=== PATIENT | female | born 1965 | race Two or more races ===

== ENCOUNTER → 2019-11-15 09:52 | Outpatient (CLI) | payer SELFPAY ==
--- NOTE | ~2019-11-15 | MMUS_ITS ---
EXAMINATION: MM diagnostic everardo LT w benji, US breast LT complete HISTORY: Follow-up left breast mass TECHNIQUE: Additional 3-D tomosynthesis images of the left breast were performed and synthetic 2-D im ages were generated. CAD analysis was submitted and interpreted. High resolution left breast ultrasou nd was performed. COMPARISON: 02/02/2019 BREAST PARENCHYMAL COMPOSITION: The breasts are heterogenously dense, which may obscure small masses. FINDINGS: MAMMOGRAPHIC FINDINGS: There are no new masses, calcifications or architectural distortion in the left breast. There are crissy ign calcifications. ULTRASOUND: Left breast ultrasound: At 2:00, 11 cm from the nipple, there is an oval circumscribed hypoechoic mas s measuring 1.2 x 0.4 x 1 cm. No internal vascularity or significant posterior shadowing. IMPRESSION: 1. No significant change to 1.2 cm circumscribed oval hypoechoic mass, most likely benign. 2. Recommend 6 month follow-up left breast ultrasound BI-RADS category 3, probably benign findings. Reviewed, dictated and finalized at location A. IMPRESSION: 1. No significant change to 1.2 cm circumscribed oval hypoechoic mass, most lik erica benign. 2. Recommend 6 month follow-up left breast ultrasound BI-RADS category 3, probably benign findings.
== END ==
PROVIDERS: Visit Provider Obstetrics & Gynecology
DX: R92.8 Other abnormal and inconclusive findings on diagnostic imaging of breast (principal)
CPT/HCPCS: 76641; 77061; 77065; G0279

== ENCOUNTER → 2020-06-25 10:22 | Outpatient (CLI) | payer BC, SELFPAY ==
--- NOTE | ~2020-06-25 | US_ITS ---
US breast LT limited INDICATION: Follow-up left breast mass TECHNIQUE: Dedicated left breast ultrasound COMPARISON: Comparison to multiple prior studies sequentially, with oldest reviewed study dated 02/10. FINDINGS: Stable benign-appearing cyst measuring 9 x 4 x 7 mm at 2:00, 11 cm from the nipple. There i s posterior acoustic enhancement without internal vascularity. IMPRESSION: 1: Stable benign-appearing left breast cyst without significant change compared with 02/23/2019. No e vidence for malignancy. Routine yearly screening mammogram and regular clinical breast examination are recommended. BI-RADS CATEGORY 2 - BENIGN FINDINGS Reviewed, dictated and finalized at location A. IMPRESSION: 1: Stable benign-appearing left breast cyst without significant change compared with 02/23/2019. No evidence for malignancy. Routine yearly screening mammogram and regular clinical breast examination are recommended. BI-RADS CATEGORY 2 - BENIGN FINDINGS
== END ==
PROVIDERS: Visit Provider Obstetrics & Gynecology
DX: R92.8 Other abnormal and inconclusive findings on diagnostic imaging of breast (principal)
CPT/HCPCS: 76642

== ENCOUNTER → 2020-07-22 15:28 | Outpatient (CLI) | payer BC, SELFPAY ==
--- NOTE | ~2020-07-22 | XR_ITS ---
XR shoulder LT min 2V DATE: 07/22/2020 15:56 INDICATION: Left shoulder pain TECHNIQUE: 4 views COMPARISON: None FINDINGS: No fracture or dislocation, periosteal reaction or bone destruction or abnormal soft tissue calcification. IMPRESSION: No fracture or dislocation Reviewed, dictated and finalized at location A. IMPRESSION: No fracture or dislocation
--- NOTE | ~2020-07-22 | XR_ITS ---
XR cervical spine 4-5V DATE: 07/22/2020 15:57 INDICATION: Neck pain TECHNIQUE: AP, open-mouth, odontoid, lateral, swimmer views. COMPARISON: None FINDINGS: There is straightening and mild reversal of the cervical spine. C1 and C2 are normally aligned and the odontoid process is intact. No fracture or dislocation or lock ed facet or prevertebral soft tissue swelling. There is mild anterolisthesis at C4-5. There is moderate degenerative disc disease and mild retrolisthesis at C5-6. There is moderate degenerative disc disease at C6-7. Degenerative spurring at the uncovertebral joints at C5-6. IMPRESSION: Straightening/reversal Mild anterolisthesis at C4-5 Moderately severe degenerative disc disease and mild retrolisthesis at C5-6 Moderate degenerative disc disease at C6-7 Reviewed, dictated and finalized at location A.
== END ==
PROVIDERS: PCP Internal Medicine; Visit Provider Internal Medicine
DX: M50.322 Other cervical disc degeneration at C5-C6 level (principal); M50.323 Other cervical disc degeneration at C6-C7 level
CPT/HCPCS: 72050; 73030

== ENCOUNTER → 2021-07-15 14:29 | Outpatient (CLI) | payer BC, SELFPAY ==
--- NOTE | ~2021-07-15 | MM_ITS ---
EXAMINATION: MM screening everardo BI w benji HISTORY: Screening TECHNIQUE: Craniocaudal and mediolateral oblique 3-D tomosynthesis images were obtained and synthetic 2-D images were generated. CAD analysis was submitted and interpreted. COMPARISON: Comparison to multiple prior studies sequentially, with oldest reviewed study dated 01/11. BREAST PARENCHYMAL COMPOSITION: The breasts are heterogenously dense, which may obscure small masses FINDINGS: There is no evidence of suspicious mass, calcification, or architectural distortion to sugg est malignancy in either breast. There has been no suspicious interval change. IMPRESSION: 1. No mammographic evidence of malignancy. 2. Recommend routine screening mammography in one year. BI-RADS Category 1: Negative Reviewed, dictated and finalized at location A.
== END ==
PROVIDERS: PCP Internal Medicine; Visit Provider Obstetrics & Gynecology Gynecology
DX: Z12.31 Encounter for screening mammogram for malignant neoplasm of breast (principal)
CPT/HCPCS: 77063; 77067

== ENCOUNTER → 2022-10-27 15:39 | Outpatient (CLI) | payer BC, SELFPAY ==
--- NOTE | ~2022-10-27 | MM_ITS ---
EXAMINATION: MM screening everardo BI w benji HISTORY: Screening TECHNIQUE: Craniocaudal and mediolateral oblique 3-D tomosynthesis images were obtained and synthetic 2-D images were generated. CAD analysis was submitted and interpreted. COMPARISON: Comparison to multiple prior studies sequentially, with oldest reviewed study dated 01/11. BREAST PARENCHYMAL COMPOSITION: The breasts are heterogeneously dense, which may obscure small masses FINDINGS: There is a new focal nodular asymmetry superiorly in the left breast seen on MLO view only. The right breast is stable without evidence for malignancy. IMPRESSION: 1. New nodular asymmetry superiorly in the left breast on MLO view. 2. Additional mammographic views and possible breast ultrasound are recommended. BI-RADS Category 0: Incomplete: Needs additional imaging evaluation. Reviewed, dictated and finalized at location A. IMPRESSION: 1. New nodular asymmetry superiorly in the left breast on MLO view. 2. Additional mammographic views and possible breast ultrasound are recommended . BI-RADS Category 0: Incomplete: Needs additional imaging evaluation.
== END ==
PROVIDERS: PCP Advanced Practice Midwife; Visit Provider Advanced Practice Midwife
DX: Z12.31 Encounter for screening mammogram for malignant neoplasm of breast (principal); N64.89 Other specified disorders of breast
CPT/HCPCS: 77063; 77067

== ENCOUNTER → 2022-11-25 09:08 | Outpatient (CLI) | payer BC, SELFPAY ==
--- NOTE | ~2022-11-25 | MMUS_ITS ---
EXAMINATION: MM diagnostic everardo LT w benji, US breast LT limited HISTORY: Follow-up left breast asymmetry TECHNIQUE: Additional 3-D tomosynthesis images of the left breast were performed and synthetic 2-D im ages were generated. CAD analysis was submitted and interpreted. High resolution Limited left breast ultrasound was performed. COMPARISON: Comparison to multiple prior studies sequentially, with oldest reviewed study dated 01/11. BREAST PARENCHYMAL COMPOSITION: The breasts are heterogeneously dense, which may obscure small masses FINDINGS: MAMMOGRAPHIC FINDINGS: There are no suspicious masses, calcifications or architectural distortion in the left breast to sugg est malignancy. ULTRASOUND: Limited left breast ultrasound: Normal heterogeneous echotexture without focal solid or cystic mass. IMPRESSION: 1. No evidence for malignancy in the left breast. 2. Routine yearly screening mammogram and regular clinical breast examination are recommended. BI-RADS Category 1: Negative Reviewed, dictated and finalized at location A. IMPRESSION: 1. No evidence for malignancy in the left breast. 2. Routine yearly screening mammogram and regular clinical breast examination a re recommended. BI-RADS Category 1: Negative
== END ==
PROVIDERS: PCP Internal Medicine; Visit Provider Obstetrics & Gynecology Gynecology
DX: R92.8 Other abnormal and inconclusive findings on diagnostic imaging of breast (principal)
CPT/HCPCS: 76642; 77061; 77065; G0279

== ENCOUNTER 2022-12-13 17:12 | Emergency (ER) | payer BC, SELFPAY ==
--- NOTE | ~2022-12-13 | CT_ITS ---
Non-contrast Head CT History: Headache Technique: Axial non-contrast imaging of the brain was performed. Dose reduction technique was used on this scan by utilizing automated exposure control and iterative reconstruction technique. The dose -length product (DLP) was 605.33 mGy-cm. Findings: There is no evidence of intracranial hemorrhage, mass lesion, or acute infarct. Brain par enchyma appears normal. The ventricles and subarachnoid spaces are normal in size. The calvarium ap pears normal. The visualized paranasal sinuses and mastoid air cells are clear. Impression: No significant abnormality seen. Reviewed, dictated and finalized at location . Impression: No significant abnormality seen.
[2022-12-13 17:14] VITALS: BP 153/99; PULSE 77; RESP 18; TEMP 36.6; O2SAT 100
--- NOTE | 2022-12-13 17:17 | ECG_ITS ---
Measurements Intervals [place] Rate: 75 P: 42 AL: 132 QRS: -1 QRSD: 76 T: 35 QT: 364 QTc: 407 Interpretive Statements SINUS RHYTHM EARLY PRECORDIAL R/S TRANSITION BORDERLINE ECG NO PREVIOUS ECG AVAILABLE FOR COMPARISON Electronically Signed On 12-13-2022 20:55:02 CDT by Jorge Carlton D.O.
[2022-12-13 17:32] LABS: Basophils Percent Auto 0.5 % (0.2-1.2); Eosinophils Absolute Auto 0.1 K/mm3 (0-0.3); Eosinophils Percent Auto 1.4 % (0-4.4); Hemoglobin 13.7 g/dL (12.0-15.0); Immature Granulocyte Absolute 0.02 K/mm3 (0.00-0.031); Immature Granulocyte Percent A 0.2 % (0-0.5); Lymphocytes Absolute Auto 1.79 K/mm3 (0.9-3.2); Lymphocytes Percent Auto 20.8 % (18.3-44.2); Mean Corpuscular HGB Conc 32.6 g/dl (32-36); Mean Corpuscular Hemoglobin 29.7 pg (26-34); Mean Corpuscular Volume 90.9 fl (80-100); Mean Platelet Volume 9.6 fl (7.4-10.4); Monocytes Absolute Auto 0.5 K/mm3 (0.1-0.6); Monocytes Percent Auto 5.6 % (2.6-8.5); Neutrophils Absolute Auto 6.2 K/mm3 (1.3-6.7); Neutrophils Percent Auto 71.5 % (45.5-73.1); Platelet Count Result 325 k/mm3 (150-375); Red Blood Count 4.62 M/mm3 (4.2-5.4); Red Cell Distribution Width 12.5 % (11.5-14.5); White Blood Count 8.6 K/mm3 (4.5-10.0)
[2022-12-13 17:47] LABS: Alanine Aminotransferase 18 U/L (6-35); Albumin Level 4.6 g/dL (3.5-5.1); Alkaline Phosphatase 62 U/L (38-126); Anion Gap 8 mmol/L (8-16); Aspartate Amino Transferase 26 U/L (14-36); Bilirubin,Total 0.4 mg/dL (0.2-1.3); Blood Urea Nitrogen 12 mg/dL (7-17); Calcium 9.4 mg/dL (8.4-10.2); Carbon Dioxide 27 mmol/L (22-30); Chloride 99 mmol/L (98-107); Estimated CRCL calculation 94 ml/min; Estimated Glomerular Filt Rate > 60; Glucose 110 mg/dL (65-110); Potassium 4.4 mmol/L (3.4-5.0); Sodium 134 mmol/L (137-145)
[2022-12-13 21:11] VITALS: BP 156/96; PULSE 83; RESP 20; O2SAT 98
--- NOTE | 2022-12-13 22:00 | ED.GENADULT ---
HPI - General Adult General Chief complaint: Headache Stated complaint: headche, HTN Time Seen by Provider: 12/13/22 21:05 History of Present Illness HPI narrative: This is a 57-year-old female presenting with a headache. Patient states that at 3:00 a.m. she started have a headache on the top of her head. This is associated with nausea vomiting and blurry vision. It lasted about 5 minutes. She then checked her blood pressure noticed elevated at 170/100. She went to an urgent care where she was redirected to the emergency room. At this time the patient is asymptomatic. Patient has history of migraines. Related Data Home Medications Medication Instructions Recorded Confirmed cholecalciferol (vitamin D3) 1,250 50,000 unit PO WEEKLY 02/13/19 03/10/22 mcg (50,000 unit) capsule Allergies Allergy/AdvReac Type Severity Reaction Status Date / Time shellfish derived Allergy Unknown Rash Verified 12/13/22 17:12 No Known Allergies Allergy Verified 12/13/22 17:12 [facility] Family History Family History Mother Patient's mother is , Onset Age: 70 Father Patient's father is in good health Sibling Patient's sister is in good health Patient's brother is in good health Social History Social History (Updated 03/10/22 @ 10:21 by Rosanne Ma MA) Smoking status: Never smoker Second hand tobacco smoke exposure: No Alcohol intake: never Lack of Transportation: No Lack of Food: Never True Current Housing: I Have Housing Concerned About Future Housing: No Difficulty Paying Gas/Electric Bills: No Difficulty Paying for Meds: No Currently Unemployed: No Education: High School Diploma/GED Difficulty w/ Childcare or Family Care: No Exam Narrative: APPEARANCE: No apparent distress. Head: atraumatic. EYES: EOMI, NOSE: Atraumatic NECK: Trachea midline RESPIRATORY: No increased rate of breathing CARDIOVASCULAR: RRR, ABDOMINAL: Non-distended MUSCULOSKELETAl: No obvious deformities NEURO: Alert. Cranial nerves 2-12 grossly intact. Sensation light touch, motor function cerebellar function intact for 4 extremities. Gait exam was normal. SKIN:: Warm, dry. Normal color PSYCHIATRIC: Normal affect Course Vital Signs Vital signs: Vital Signs Temperature 98 F 12/13/22 17:14 Pulse Rate 77 12/13/22 17:14 Respiratory Rate 18 12/13/22 17:14 Blood Pressure 153/99 H 12/13/22 17:14 Pulse Oximetry 100 12/13/22 17:14 Oxygen Delivery Room Air 12/13/22 17:14 Temperature 98 F 12/13/22 17:14 Pulse Rate 83 12/13/22 21:11 Respiratory Rate 20 12/13/22 21:11 Blood Pressure 156/96 H 12/13/22 21:11 Pulse Oximetry 98 12/13/22 21:11 Oxygen Delivery Room Air 12/13/22 17:14 Medical Decision Making MDM Narrative Medical decision making narrative: -Course: 57-year-old female sent from an urgent care for a headache that is resolved. CT was negative. Patient is asymptomatic at this time. Blood pressures are mildly elevated but no evidence of hypertensive emergency. Patient will be discharged with primary care follow-up. -DDX includes but is not limited to: ICH, simple headache, tension had, migraine -Co-morbidities complicating care: headaches, hypertension -Social determinants of health: housewife, lives with her -Independent interpretation of studies: CT head normal. Laboratory studies normal. Independent EKG interpretation: Rhythm [sinus], Rate [75], [place] -[normal], [place] -[normal], QRS [narrow], QTC [normal], T waves -[negative for concerning inversions], ST Segments - [Negative for concerning elevations] Final interpretations: [Normal Sinus Rhythm] -Interventions: patient declined pain medication as her headache is resolved. -Shared decision making / Disposition: Discharged Vital Signs Vital Signs: Vital Signs Temperature 98 F 12/13/22 17:14 Pulse Rate 77 09
[2022-12-13 22:13] VITALS: BP 134/91; PULSE 78; RESP 18; O2SAT 99
== END 2022-12-13 22:15 | disposition home or self-care (01) ==
PROVIDERS: Emergency Medicine; Emergency Provider Emergency Medicine; PCP Internal Medicine
DX: R51.9 Headache, unspecified (principal); R94.31 Abnormal electrocardiogram [ECG] [EKG]
CPT/HCPCS: 36415; 70450; 80053; 85025; 93005; 99284

== ENCOUNTER 2024-07-03 10:21 | Outpatient (CLI) | payer BC, SELFPAY ==
--- NOTE | ~2024-07-03 | MM_ITS ---
EXAMINATION: MM screening everardo BI w benji HISTORY: Screening TECHNIQUE: Craniocaudal and mediolateral oblique 3-D tomosynthesis images were obtained and synthetic 2-D images were generated. CAD analysis was submitted and interpreted. COMPARISON: 10/27/2022 and dating back to 02/02/2019 BREAST PARENCHYMAL COMPOSITION: The breasts are heterogeneously dense, which may obscure small masses . FINDINGS: Punctate calcifications are detected bilaterally (right greater than left), stable and danish gn in appearance. Stable parenchymal pattern without suspicious microcalcifications, architectural distortion, discrete masses or significant asymmetry. IMPRESSION: 1. No mammographic evidence of malignancy. 2. Recommend routine screening mammography in one year. BI-RADS Category 2: Benign finding(s). Reviewed, dictated and finalized at location A.
--- NOTE | ~2024-07-03 | DEXA_ITS ---
Bone Density Report Name: LOWELL HAYNES Age: 58 Sex: Female Ethnicity: White Date of : 1965 Indication: postmenopausal; screening for osteoporosis; height loss; Referring Provider: KAYLYN GODFREY Study: Bone densitometry was performed. Exam Date: July 03, 2024 Accession number: [id number] Bone Density: Region BMD T-score Z-score Classification AP Spine(L1-L4) 0.756 -2.6 -1.5 Osteoporosis Femoral Neck (Left) 0.622 -2.0 -0.9 Osteopenia Total Hip (Left) 0.742 -1.6 -0.9 Osteopenia Femoral Neck (Right) 0.592 -2.3 -1.2 Osteopenia Total Hip (Right) 0.786 -1.3 -0.5 Osteopenia Total Hip Mean 0.764 -1.5 -0.7 Osteopenia World Health Organization criteria for BMD impression classify patients as: Normal (T-score at or above -1.0), Osteopenia (T-score between -1.0 and -2.5), or Osteoporosis (T-score at or below -2.5). 10-year Fracture Risk: FRAX not reported because: Some T-score for Spine Total or Hip Total or Femoral Neck at or below -2.5 Clinical Information Provided by Patient: Has used the following medications: Vitamin D Patient maximum height was 62 Menopause Age: 56 No regular weight bearing exercise Does not regularly consume dairy products Onset of menses at age 15 Number of children 2 Impression: The patient has osteoporosis, based on the Total Spine T-score. Discussion: INCREASED RISK OF FRACTURE. BONE DENSITY IS UNDESIRABLY LOW AT ONE OR MORE SKELETAL SITES, CONSISTENT WITH POSTMENOPAUSAL OSTEOPOROSIS. This patient's lowest T-score meets the World Health Organization's (WHO) criteria for osteoporosis at one or more sites (T-score -2.5 or below). In untreated patients, the risk of osteoporotic fracture increases approximately two-fold for each 1.0 SD decrease in T-score. Low bone density is not the only risk factor for fracture; also consider factors such as patient's age, frailty or poor health, risk of falling, risk of injury, previous osteoporotic fracture, family history of osteoporosis, cigarette smoking, low body weight, etc. Not everyone with low bone mineral density has osteoporosis; osteomalacia and other metabolic bone disorders should also be considered. Patients who have osteoporosis should be evaluated for specific diseases and conditions (secondary causes) that may cause or contribute to bone loss. The [place] [employer] Clinical Endocrinologists (AACE) and National Osteoporosis Foundation (NOF) recommend pharmacologic intervention for all postmenopausal women whose T-score is in this range. The patient should follow a healthful lifestyle (good nutrition with adequate calcium and vitamin D, and appropriate weight-bearing exercise). Follow-Up: Consider a repeat BMD and Vertebral Fracture Assessment (VFA) exam in 2 years or sooner if medically necessary, to reassess this patient's status. Reported by: BUBBA on 07/03/2024 11:03:00 AM. Reviewed, dictated and finalized at location A. SARY
--- OUTSIDE RECORDS SUMMARY | 2024-07-03 12:18 | XMS_ITS | Referral Summary ---
Author Organization [facility] [address] Address [address] [place] [address] Care Team Providers Care District Leader Name Role Phone Misael Brooks MD Primary Care Provider [phone] Unknown, Notinfile Unavailable Unavailable Allergies No known active allergies Medications cholecalciferol (VITAMIN D-3) 21454 unit tablet Take by mouth Active amLODIPine (NORVASC) 2.5 mg tabletIndications :Essential hypertension Take 1 tablet (2.5 mg total) by mouth daily 90 tablet 3 02/02/2024 02/02/20 25 Active lisinopriL (PRINIVIL,ZESTRIL ) 20 mg tabletIndications :Essential hypertension Take 1 tablet (20 mg total) by mouth daily 90 tablet 3 02/02/2024 Active Active Problems Problem Noted Date Diagnosed Date Essential hypertension 02/08/2023 Hypercholesterolemia 02/08/2023 Social History Tobacco Use Types Packs/Day Years Used Date Smoking Tobacco: Never Passive Smoke Exposure: Never Smokeless Tobacco: Never Tobacco Cessation:Counseling Given: Not Answered Comments Unknown Sex and Gender Information Value Date Recorded Sex Assigned at Not on file Legal Sex Female 4:53 PM CDT Gender Identity Not on file Sexual Orientation Not on file Last Filed Vital Signs Vital Sign Reading Time Taken Comments Blood Pressure 110/80 06/07/2023 10:49 AM INTERIOR DESIGN FACULTY MEMBER Pulse 82 06/07/2023 10:49 AM INTERIOR DESIGN FACULTY MEMBER Temperature - - Respiratory Rate 24 12/13/2022 4:57 PM CDT Oxygen Saturation 98% 06/07/2023 10: 49 AM INTERIOR DESIGN FACULTY MEMBER Inhaled Oxygen Concentration - - Weight 68.4 kg (150 lb 14.4 oz) 02/26/2 024 10:49 AM INTERIOR DESIGN FACULTY MEMBER Height 157.5 cm (5' 2 ) 06/07/2023 10:4 9 AM INTERIOR DESIGN FACULTY MEMBER Body Mass Index 27.6 06/07/2023 10:49 AM INTERIOR DESIGN FACULTY MEMBER Plan of Treatment Not on file [place] Care Teams District Leader Relationship Specialty Start Date End Date Misael Brooks MD [address] [facility] [address] [place] [address] PCP - General Internal Medicine 01/21/23 Unknown, Notinfile 01/21/23
--- OUTSIDE RECORDS SUMMARY | 2024-07-03 12:18 | XMS_ITS | Clinical Summary ---
Author Organization [facility] [address] Address [address] [place] [address] Care Team Providers Care Bmx Rider Name Role Phone Misael Brooks MD Primary Care Provider [phone] Unknown, Notinfile Unavailable Unavailable Allergies No known active allergies Medications cholecalciferol (VITAMIN D-3) 05908 unit tablet Take by mouth Active amLODIPine (NORVASC) 2.5 mg tabletIndications :Essential hypertension Take 1 tablet (2.5 mg total) by mouth daily 90 tablet 3 02/02/2024 02/02/20 25 Active lisinopriL (PRINIVIL,ZESTRIL ) 20 mg tabletIndications :Essential hypertension Take 1 tablet (20 mg total) by mouth daily 90 tablet 3 02/02/2024 Active Active Problems Problem Noted Date Diagnosed Date Essential hypertension 02/08/2023 Hypercholesterolemia 02/08/2023 Medical History Medical History Date Comments Hypertension Family History Medical History Relation Name Comments Car Accident Brother 1 No Known Problems Brother 2 Heart attack Father Stroke Mother No Known Problems Sister Relation Name Status Comments Brother 1 Brother 2 Alive Father Mother Sister Alive Social History Tobacco Use Types Packs/Day Years Used Date Smoking Tobacco: Never Passive Smoke Exposure: Never Smokeless Tobacco: Never Tobacco Cessation:Counseling Given: Not Answered Comments Unknown Sex and Gender Information Value Date Recorded Sex Assigned at Not on file Legal Sex Female 4:53 PM CDT Gender Identity Not on file Sexual Orientation Not on file Obstetrics History Last Filed Vital Signs Vital Sign Reading Time Taken Comments Blood Pressure 110/80 06/07/2023 10:49 AM PATCH MACHINE OPERATOR Pulse 82 06/07/2023 10:49 AM PATCH MACHINE OPERATOR Temperature - - Respiratory Rate 24 12/13/2022 4:57 PM CDT Oxygen Saturation 98% 06/07/2023 10: 49 AM PATCH MACHINE OPERATOR Inhaled Oxygen Concentration - - Weight 68.4 kg (150 lb 14.4 oz) 024 10:49 AM PATCH MACHINE OPERATOR Height 157.5 cm (5' 2 ) 06/07/2023 10:4 9 AM PATCH MACHINE OPERATOR Body Mass Index 27.6 06/07/2023 10:49 AM PATCH MACHINE OPERATOR Plan of Treatment Health Maintenance Due Date Last Done Comments Breast Cancer Screening-Mammogram 1965 Cervical Cancer Screening 1965 Colon Cancer Screening-Colonoscopy 1965 Depression Screening 1965 Hepatitis C Screening 1965 DTaP/Tdap/Td Vaccine (1 - Tdap) 10/03/1978 Hepatitis B Screening 10/03/1985 Regular Well Visit/Exam 18-64 10/03/1985 Zoster Vaccine (1 of 2) 10/03/2017 Covid-19 Vaccine (4 - 2023-2 5 season) 2023 03/25/2021, 07/26/2020, 07/05/2020 Influenza Vaccine (#1) 2023 01/29/2022 Pneumococcal vaccine <65 Aged Out No longer eligible based on patient's age to complete this topic Insurance CHOICE [facility] [place] Care Teams Bmx Rider Relationship Specialty Start Date End Date Misael Brooks MD [address] [facility] [address] [place] [address] PCP - General Internal Medicine 01/21/23 Unknown, Notinfile 01/21/23
--- OUTSIDE RECORDS SUMMARY | 2024-07-03 12:18 | XMS_ITS | Clinical Summary ---
Author Organization [facility] Address [address] [place] [address] Care Team Providers Care Street Light Lamp Cleaner Name Role Phone Misael Brooks Karol ARRIETA Primary Care Provider [phone] Source Comments [facility],non-owned Affiliates and Associated Physician Practices is amultiple site organization consisting of ambulatory clinics and hospital sitesin [place], [place], [place] and [place]. This disclosure is being madepursuant to the Care Everywhere program and may not contain all information available regarding this patient. Last updated 17.[facility] Allergies No known active allergies Medications * Be aware that medications may not be up to date on this document. Alwaysverify current medications with the patient. Medication Sig Dispensed Refills Start Date End Date Status lisinopril (Prinivil; Zestril) 5 MG tablet 08/27/2021 Active traMADol (Ultram) 50 MG tablet 11/06/2021 Active Cholecalciferol (Vitamin D3) 250 MCG (39470 UT) TABS Active Social History Tobacco Use Types Packs/Day Years Used Date Smoking Tobacco: Never Smokeless Tobacco: Never Alcohol Use Standard Drinks/Week Comments Not Currently 0 (1 standard drink = 0.6 oz pur e alcohol) Sex and Gender Information Value Date Recorded Sex Assigned at Not on file Gender Identity Not on file Sexual Orientation Not on file Last Filed Vital Signs Vital Sign Reading Time Taken Comments Blood Pressure 173/98 12/03/2021 10:44 AM CDT Pulse 66 12/03/2021 10:44 AM CDT Temperature - - Respiratory Rate 16 12/03/2021 10:44 AM CDT Oxygen Saturation 98% 12/03/2021 10:44 AM CDT Inhaled Oxygen Concentration - - Weight 65.3 kg (144 lb) 11/18/2021 10:36 AM CDT Height 157.5 cm (5' 2 ) 11/18/2021 10:36 AM CDT Body Mass Index 26.34 11/18/2021 10:36 AM CDT Plan of Treatment Health Maintenance Due Date Last Done Comments COLOGUARD (AGES 45-75) - COL ON CA SCREENING 1965 COLON MONITORING 1967 COLONOSCOPY - COLON CA SCREENING 1967 CT COLONOGRAPHY - COLON CA SCREENING 1965 Colorectal Cancer Screening 1967 FIT - COLON CA SCREENING 1967 FLEX SIG - COLON CA SCREENING 1967 LIPID TESTING 1965 MAMMOGRAM 1965 PAP SMEAR 1967 HIV SCREENING 10/03/1982 HEPATITIS C SCREENING 09/29/1985 DTAP/TDAP/TD VACCINES (1 - Tdap) 10/03/1986 HEPATITIS B VACCINE (1 of 3 - 19+ 3-dose series) 10/03/1986 PNEUMOCOCCAL VACCINE 50+ (1 of 1 - PCV) 10/03/2017 ZOSTER VACCINE (1 of 2) 10/03/2017 SCREENING FOR DIABETES 11/18/2021 COVID-19 VACCINE (1 - 2023-2 5 season) 2023 INFLUENZA VACCINE (#1) 2023 DEPRESSION SCREENING 04/12/2024 HIB VACCINE Aged Out No longer eligi ble based on patient's age to complete this topic HPV VACCINE Aged Out No longer eligi ble based on patient's age to complete this topic MENINGOCOCCAL (Group B) VACC INE SHARED DECISION-MAKING Aged Out No longer eligibl e based on patient's age to complete this topic MENINGOCOCCAL GROUPS A/C/Y/W VACCINE Aged Out No longer eligible b ased on patient's age to complete this topic Care Teams Street Light Lamp Cleaner Relationship Specialty Start Date End Date Misael Brooks DO [address] [facility] [address] [place] [address] PCP - General Internal Medicine 11/18/21
== END 2024-07-03 10:22 | disposition home or self-care (01) ==
PROVIDERS: PCP Physician Assistant; Visit Provider Nurse Practitioner Women's Health
DX: Z12.31 Encounter for screening mammogram for malignant neoplasm of breast (principal); M81.0 Age-related osteoporosis without current pathological fracture; M85.89 Other specified disorders of bone density and structure, multiple sites; Z78.0 Asymptomatic menopausal state; Z13.820 Encounter for screening for osteoporosis
CPT/HCPCS: 77063; 77067; 77080